=== PATIENT | female | born 1985 | race Hispanic/Latino ===

== ENCOUNTER → 2016-08-07 | Outpatient (CLI) | payer OTHER ==
[2016-08-07 11:48] LABS: HEMATOCRIT 36.7 % (37.0-47.0); HEMOGLOBIN 12.4 g/dL (12.0-16.0); RED BLOOD COUNT 4.13 10^6/uL (4.20-5.40); WHITE BLOOD COUNT 11.19 10^3/uL (4.8-10.8)
[2016-08-07 11:49] LABS: MEAN CORPUSCULAR HGB CONC 33.8 g/dL (33-37); MEAN PLATELET VOLUME 10.2 FL (7.4-12.2); RDW COEFFICIENT OF VARIATION 13.3 % (11.5-14.5)
[2016-08-07 11:57] LABS: ASPARTATE AMINO TRANSFERASE 17 IU/L (8-39); BILIRUBIN,TOTAL 0.3 mg/dL (0.3-1.2); BLOOD UREA NITROGEN 7 mg/dL (7-22); BUN/CREATININE RATIO 11.66 (6-20); CALCIUM 9.1 mg/dL (8.7-10.7); CHLORIDE 104 meq/L (98-112); CREATININE 0.6 mg/dL (0.50-1.20); EST GLOMERULAR FILTRATION > 60 (>60 ml/min/1.73m(2)); GLUCOSE 186 mg/dL (78-110); POTASSIUM 3.7 meq/L (3.8-5.2); SODIUM 137 meq/L (135-145); TOTAL PROTEIN 6.5 g/dL (6.1-8.0)
== END ==
LOC: LAB 10:18
PROVIDERS: ATTEND Obstetrics & Gynecology
DX: Z36 Encounter for antenatal screening of mother (principal); O26.893 Other specified pregnancy related conditions, third trimester; R16.0 Hepatomegaly, not elsewhere classified; Z3A.28 28 weeks gestation of pregnancy
CPT/HCPCS: 36415; 80053; 82950; 85027

== ENCOUNTER 2016-08-30 08:42 | Outpatient (CLI) | payer OTHER ==
[~2016-08-30 08:42] MED LIST: NORMAL SALINE 10 ML SYRINGE FLUSH IVP PRN
--- NOTE | 2016-08-30 12:04 | DI ---
US OB , LIMITED,08/30/2016 8:52 AM: Clinical History: Gestational diabetes mellitus Previous Exam: June 08, 2016 Findings: Multiple grayscale and color Doppler sonographic images are obtained through the uterus demonstrating a single live intrauterine gestation in vertex presentation with a normal amniotic fluid index (13.4 cm). There is normal motion and detected Doppler heart tones of 127 beats per minute. The placenta is anterior and grade 1 without gross defects. Estimated gestational age was determined by a composite of biparietal diameter, head circumference, a bdominal circumference and femur length yielding an estimated gestational age by ultrasound of 34 wee ks 3 days. This is 18 days further along than the estimated gestational age by last menstrual period (31 weeks 6 days). The femur length measures at greater than the 98th percentile. The abdominal circumference is at the 98th percentile. Estimated weight was 2455 g (98th percentile). Impression: Single live intrauterine gestation with size greater than dates (98th percentile). Estimated gestatio nal age by biometry measures 34 weeks 3 days. Estimated gestational age by last menstrual perio d measures 31 weeks 6 days. At the 14 week appointment, estimated gestational age by ultrasound is on ly 4 days greater than by last menstrual period.
--- NOTE | 2016-08-30 12:44 | DI ---
US OB BIOPHYS PROFILE W/NST,08/30/2016 10:31 AM: Clinical History: Gestational diabetes. Previous Exam: June 08, 2016 Findings: Multiple grayscale and color Doppler sonographic images are obtained through the pelvis demonstrating a normal amniotic fluid index (15.3 cm). There is normal respiratory motion identified as well as movement and tone. Detected Doppler he art tones measured 158 beats per minute. The placenta was grossly normal throughout its visualized po rtions. Impression: Normal biophysical profile (02/26).
--- NOTE | 2016-08-30 16:22 | PDOC(PROG) ---
Assessment and Plan - Assessment / Plan Additional Assessment/Plan Details: Assessment: IUP 31-6/7 weeks with gestational diabetes and patient was started on glyburide. The patient was started on antepartum testing today. The patient has a biophysical profile of 10 out of 10 with a reactive NST and an ADEEL of 15 and this is excellent. The patient's baby was very active and there were accelerations and there was one deceleration just after the acceleration and just before another acceleration. It lasted for about 40 seconds. Most likely this deceleration was secondary to the 2 accelerations but a biophysical profile was performed and it was 8 out of 8. After a while on the nonstress test, there was a great baseline identified and excellent accelerations with no decelerations. The estimated weight was the 98th percentile. The patient is a previous C -section and will have a repeat . I will have another repeat C- section in 4 weeks to look for growth. I saw the patient in labor and delivery and the patient discussed that she has been taking her glyburide 2.5 mg twice a day which is a low dose since she just started this at noon and then in the evening. She was told not to take the glyburide and then go to sleep and she was concerned because she often takes a morning nap and therefore she is not taking it until noon. The patient stated that her fasting glucoses in the morning have been about 75-90. Patient states that her 2 hour postprandials have been between 120 and 135 and occasionally up to 144. Plan: The patient will continue her antepartum testing The patient will have a growth scan in 4 weeks The patient will see me next week and we may have to increase the dose of her glyburide in the morning depending upon what her glucoses are. The patient will have a nonstress test on 03 September and then a biophysical profile on 05 September. If the nonstress test on both days looks excellent, then the patient can continue biophysical profiles once a week since the patient lives more than an hour away from [facility]. I will see the patient on Saturday afternoon after her BPP and evaluate her glucoses at that time.
[2016-08-30 18:14] VITALS: RESP 18; TEMP 98.4
== END 2016-08-30 11:19 | disposition home or self-care (01) ==
LOC: US 08:42 → OBOP 08:42
PROVIDERS: ATTEND Obstetrics & Gynecology
DX: O24.415 Gestational diabetes mellitus in pregnancy, controlled by oral hypoglycemic drugs (principal); Z3A.31 31 weeks gestation of pregnancy
CPT/HCPCS: 59025; 76815; 76818; 99211

== ENCOUNTER 2016-09-03 10:07 | Outpatient (CLI) | payer OTHER ==
[2016-09-03 11:08] VITALS: RESP 18; TEMP 98.4
--- NOTE | 2016-09-03 16:27 | PDOC(PROG) ---
Intake - - Reason for Visit/Chief Complaint: Bi-weekly NST Admitted From: Home - Estimated Due Date: 10/26/16 Gestational Age in Weeks and Days: 32 Weeks and 3 Days : 3 Para: 1 Number of Abortions (Spont./Elective): 1 Living Children: 1 - Labs Blood Type and Rh: A+ Hepatitis B Surface Antigen: Absent HIV: Negative Rubella Status: Immune VDRL/RPR: Absent Maternal - Vital Signs Last Taken Vital Signs: Vital Signs - Last Taken Temperature 98.4 F 09/03/16 11:05 Pulse Rate 82 09/03/16 11:05 Respiratory Rate 18 09/03/16 11:05 Blood Pressure 133/65 09/03/16 11:05 Pulse Ox 96 09/03/16 11:05 - Uterine Activity Uterine Contraction Monitor Mode: External Uterine Tone Measurement Phase: soft - Vaginal Discharge Vaginal Bleeding Amount: None Vaginal Discharge Amount: None Monitoring - Uterine Activity Uterine Contraction Monitor Mode: External Uterine Tone Measurement Phase: soft Assessment and Plan - Assessment / Plan Additional Assessment/Plan Details: Assessment: IUP 32-3/7 weeks with A2 diabetes mellitus which is gestational diabetes on medication. Reactive nonstress test without variable decelerations per nurse in labor and delivery The patient's 2 hour postprandial glucose in the evening has been 135. Fasting glucoses in the morning have been around 90 Plan: The patient will continue antepartum testing with a biophysical profile on Saturday. If there are no variable decelerations then we will continue BPP' s once a week. The patient will increase her dose of glyburide to 5 mg in the morning and continued 2.5 mg in the evening. The patient will see me on Saturday and bring her fingerstick glucose record with her. I will continue to adjust the patient's glyburide as needed. The patient and I discussed the reason to control her glucoses are for several reasons. One is to control the patient's glucoses and to try to control weight gain in the patient. The next is try to control the fetus' weight gain secondary to the fetus having increase insulin production if the mother's glucose is elevated. Therefore increasing the EFW. The patient's ultrasound last week showed the EFW to be the 98th percentile. And also the reason to control the mother's glucoses is to try to get the fetus' glucose more control so that when the baby is born, the baby does not have as many problems with glucose control in the first 48-72 hours. The patient expressed understanding. The patient will be a repeat since she had a historically.
== END 2016-09-03 11:08 | disposition home or self-care (01) ==
LOC: OBOP 10:07
PROVIDERS: ATTEND Obstetrics & Gynecology
DX: O24.415 Gestational diabetes mellitus in pregnancy, controlled by oral hypoglycemic drugs (principal); Z3A.32 32 weeks gestation of pregnancy
CPT/HCPCS: 59025; 99211

== ENCOUNTER 2016-09-05 10:53 | Outpatient (CLI) | payer OTHER ==
[2016-09-05 11:11] VITALS: RESP 16; TEMP 98
--- NOTE | 2016-09-05 13:01 | DI ---
US OB BIOPHYS PROFILE W/NST,09/05/2016 12:00 PM: Clinical History: Assess well-being. Previous Exam: August 30, 2016 Findings: Multiple grayscale and color Doppler sonographic images are obtained through the pelvis demonstrating a single live intrauterine gestation. Detected Doppler heart tones measured 163 beats per minute. Amniotic fluid index measured 12.8 cm. There is normal spontaneous motion. The placenta was wit hin normal limits. There were normal respiratory movement is identified. Impression: Normal biophysical profile (02/26). Normal placenta without evidence of accreta.
--- NOTE | 2016-09-10 10:09 | PDOC(PROG) ---
Intake - - Reason for Visit/Chief Complaint: Bi-weekly NST Admitted From: Home - Estimated Due Date: 10/26/16 Gestational Age in Weeks and Days: 33 Weeks and 3 Days : 3 Para: 1 Number of Abortions (Spont./Elective): 1 Living Children: 1 - Labs Blood Type and Rh: A+ Group B Strep: Unknown Hepatitis B Surface Antigen: Absent HIV: Negative Rubella Status: Immune VDRL/RPR: Absent Maternal - Vital Signs Last Taken Vital Signs: Vital Signs - Last Taken Temperature 98.0 F 09/05/16 11:10 Pulse Rate 87 09/05/16 11:10 Respiratory Rate 16 09/05/16 11:10 Blood Pressure 130/77 09/05/16 11:17 Pulse Ox 100 09/05/16 11:10 - Uterine Activity Uterine Contraction Monitor Mode: External Contraction Frequency(minutes): none noted or palpated - Vaginal Discharge Vaginal Bleeding Amount: None Vaginal Discharge Amount: None Monitoring - Uterine Activity Uterine Contraction Monitor Mode: External Contraction Frequency(minutes): none noted or palpated Assessment and Plan - Assessment / Plan Additional Assessment/Plan Details: Patient has gestational diabetes. Patient had a biophysical profile which was 10 out of 10. There were no decelerations. Patient's glucoses were evaluated at an appointment the same day. Her glyburide dose was adjusted. The patient will continue weekly biophysical profiles since she lives so far away. Her glucoses will continue to be monitored and her glyburide dose will continue to be adjusted.
== END 2016-09-05 12:29 | disposition home or self-care (01) ==
LOC: OBOP 10:53
PROVIDERS: ATTEND Obstetrics & Gynecology
DX: O24.415 Gestational diabetes mellitus in pregnancy, controlled by oral hypoglycemic drugs (principal); O99.333 Smoking (tobacco) complicating pregnancy, third trimester; F17.210 Nicotine dependence, cigarettes, uncomplicated; Z3A.32 32 weeks gestation of pregnancy
CPT/HCPCS: 59025; 76818; 99211

== ENCOUNTER 2016-09-12 09:27 | Outpatient (CLI) | payer OTHER ==
[2016-09-12 10:00] VITALS: RESP 18; TEMP 97.4
[2016-09-12 11:25] LABS: HEMATOCRIT 37.9 % (37.0-47.0); HEMOGLOBIN 12.7 g/dL (12.0-16.0); MEAN CORPUSCULAR HEMOGLOBIN 29.5 PG (27-31); MEAN CORPUSCULAR HGB CONC 33.5 g/dL (33-37); MEAN PLATELET VOLUME 9.9 FL (7.4-12.2); RDW COEFFICIENT OF VARIATION 14.4 % (11.5-14.5); RED BLOOD COUNT 4.3 10^6/uL (4.20-5.40); WHITE BLOOD COUNT 11.28 10^3/uL (4.8-10.8)
[2016-09-12 11:37] LABS: ASPARTATE AMINO TRANSFERASE 19 IU/L (8-39); BILIRUBIN,TOTAL 0.3 mg/dL (0.3-1.2); BLOOD UREA NITROGEN 6 mg/dL (7-22); CALCIUM 8.7 mg/dL (8.7-10.7); CHLORIDE 101 meq/L (98-112); CREATININE 0.5 mg/dL (0.50-1.20); EST GLOMERULAR FILTRATION > 60 (>60 ml/min/1.73m(2)); GLUCOSE 88 mg/dL (78-110); POTASSIUM 3.7 meq/L (3.8-5.2); SODIUM 133 meq/L (135-145); TOTAL PROTEIN 6.7 g/dL (6.1-8.0); URIC ACID 5.4 mg/dl (2.5-6.2)
--- NOTE | 2016-09-12 13:05 | DI ---
US OB , LIMITED,09/12/2016 10:27 AM: Clinical History: Gestational diabetes. Previous Exam: None at this facility. Findings: Multiple grayscale and color Doppler sonographic images are obtained through the pelvis demonstrating a single live intrauterine gestation in vertex presentation. There is normal motion of the limbs and the hemidiaphragms. The placenta is anterior without gross defects. Detected Doppler heart tones measure 132 beats per minute. Amniotic fluid index measured 13.8 cm. Estimated gestational age was determined by a composite of biparietal diameter, head circumference, a bdominal circumference and femur length yielding an estimated gestational age of 35 weeks 5 days. Estimated weight was 2765 g (94th percentile). Impression: Single live intrauterine gestation with size equal to dates (estimated gestational age by ultrasound measures 2 weeks larger than by last menstrual period ).
--- NOTE | 2016-09-12 16:54 | DI ---
US OB BIOPHYS PROFILE W/NST,09/12/2016 10:26 AM: Clinical History: Assess well-being. Previous Exam: September 05, 2016 Findings: Multiple grayscale and color Doppler sonographic images are obtained through the pelvis demonstrating a single live intrauterine gestation in vertex presentation. Amniotic fluid index is normal (13.8 cm). There is normal motion of the limbs and normal diaphragmatic motion. Detected Doppler heart tones measured 132 beats per minute. Impression: Normal biophysical profile (02/26).
== END 2016-09-12 12:20 | disposition home or self-care (01) ==
LOC: OBOP 09:27 → US 09:27 → OBOP 12:20
PROVIDERS: ATTEND Obstetrics & Gynecology
DX: O24.415 Gestational diabetes mellitus in pregnancy, controlled by oral hypoglycemic drugs (principal); O99.333 Smoking (tobacco) complicating pregnancy, third trimester; Z36 Encounter for antenatal screening of mother; Z3A.33 33 weeks gestation of pregnancy
CPT/HCPCS: 36415; 59025; 76815; 76818; 80053; 81003; 83615; 84550; 85025; 99211

== ENCOUNTER 2016-09-19 09:36 | Outpatient (CLI) | payer OTHER ==
[2016-09-19 09:57] VITALS: RESP 18; TEMP 97.7
--- NOTE | 2016-09-19 20:10 | DI ---
LIMITED OBSTETRICAL ULTRASOUND FOR BIOPHYSICAL PROFILE, 09/19/2016 10:24 AM Clinical History: Gestational diabetes. Assess well-being. Previous Exam: 09/12/2016. ADJUSTED LMP: 01/20/2016. ADEEL: 19.1 cm. Heart Rate: 132 Respiration Score: 2 Fine Motor Score: 2 Gross Motor Score: 2 Amnionic Fluid Score: 2 Readin. Biophysical Profile Score: 8/8 2. Qualitatively, there is mild polyhydramnios for this stage of .
--- NOTE | 2016-09-24 06:55 | PDOC(PROG) ---
Intake - - Reason for Visit/Chief Complaint: NST Admitted From: Home - Estimated Due Date: 10/26/16 Gestational Age in Weeks and Days: 35 Weeks and 3 Days : 2 Para: 1 Number of Abortions (Spont./Elective): 1 Living Children: 1 - Labs Blood Type and Rh: A+ Hepatitis B Surface Antigen: Absent HIV: Negative Rubella Status: Immune VDRL/RPR: Absent Maternal - Vital Signs Last Taken Vital Signs: Vital Signs - Last Taken Temperature 97.7 F 09/19/16 09:48 Pulse Rate 71 09/19/16 09:48 Respiratory Rate 18 09/19/16 09:48 Blood Pressure 121/77 09/19/16 09:48 Pulse Ox 100 09/19/16 09:48 - Uterine Activity Uterine Contraction Monitor Mode: External Uterine Contraction Pattern: Absent - Vaginal Discharge Vaginal Bleeding Amount: None Vaginal Discharge Amount: None Monitoring - Uterine Activity Uterine Contraction Monitor Mode: External Uterine Contraction Pattern: Absent Results - Bedside Testing Bedside Urine Ketone: Small Bedside Urine Leukocytes Esterase: Negative Bedside Urine Nitrite: Negative Bedside Urine Occult Blood: Negative Bedside Urine Protein: Negative Bedside Specific [place]: 1.005 Assessment and Plan - Assessment / Plan Additional Assessment/Plan Details: Reactive NST. Discharge to home in good condition. - Time Time Spent With Patient: Less Than 15 Minutes
== END 2016-09-19 11:00 | disposition home or self-care (01) ==
LOC: US 09:36
PROVIDERS: ATTEND Obstetrics & Gynecology
DX: O24.415 Gestational diabetes mellitus in pregnancy, controlled by oral hypoglycemic drugs (principal); O40.3XX0 Polyhydramnios, third trimester, not applicable or unspecified; Z3A.34 34 weeks gestation of pregnancy
CPT/HCPCS: 59025; 76818; 81003; 99211

== ENCOUNTER 2016-10-02 14:33 | Outpatient (CLI) | payer OTHER ==
[2016-10-02] MEDS ORDERED: NORMAL SALINE 10 ML SYRINGE FLUSH IVP PRN (14:55)
[2016-10-02 15:03] VITALS: RESP 20; TEMP 98
[2016-10-02 15:17] LABS: HEMOGLOBIN 12.6 g/dL (12.0-16.0); MEAN CORPUSCULAR HEMOGLOBIN 28.8 PG (27-31); MEAN CORPUSCULAR HGB CONC 33.2 g/dL (33-37); RED BLOOD COUNT 4.38 10^6/uL (4.20-5.40)
[2016-10-02 15:49] LABS: BLOOD UREA NITROGEN 5 mg/dL (7-22); EST GLOMERULAR FILTRATION > 60 (>60 ml/min/1.73m(2)); SERUM ALBUMIN 3.2 g/dL (3.5-4.8)
--- NOTE | 2016-10-02 20:23 | DI ---
LIMITED OBSTETRICAL ULTRASOUND FOR BIOPHYSICAL PROFILE, 10/02/2016 2:35 PM Clinical History: Gestational diabetes. Previous Exam: 09/19/2016. ADJUSTED LMP: 01/20/2016. ADEEL: 16.2 cm. Heart Rate: Varies between 149-155 beats per minute. Respiration Score: 2 Fine Motor Score: 2 Gross Motor Score: 2 Amnionic Fluid Score: 2 Readin. Biophysical Profile Score: 8/8 2. There is mild polyhydramnios for this stage of .
--- NOTE | 2016-10-09 09:49 | PDOC(PROG) ---
Intake - - Reason for Visit/Chief Complaint: NST - Para: 1 Number of Abortions (Spont./Elective): 1 Living Children: 1 - Labs Blood Type and Rh: A+ Maternal - Vital Signs Last Taken Vital Signs: Vital Signs - Last Taken Temperature 98.0 F 10/02/16 14:05 Pulse Rate 72 10/02/16 14:05 Respiratory Rate 20 10/02/16 14:05 Blood Pressure 116/72 10/02/16 14:33 Pulse Ox 100 10/02/16 14:05 Results - Labs CBC and BMP: 10/02/16 14:57 10/02/16 14:57 - Bedside Testing Bedside Urine Ketone: Negative Bedside Urine Leukocytes Esterase: Negative Bedside Urine Nitrite: Negative Bedside Urine Occult Blood: Negative Bedside Urine Protein: Negative Bedside Specific [place]: 1.005 Assessment and Plan - Assessment / Plan Additional Assessment/Plan Details: Reassuring maternal and evaluation. Discharge to home in good condition. - Time Time Spent With Patient: Less Than 15 Minutes
== END 2016-10-02 16:00 | disposition home or self-care (01) ==
LOC: OBOP 14:33 → US 14:33 → OBOP 16:00
PROVIDERS: ATTEND Obstetrics & Gynecology
DX: O24.415 Gestational diabetes mellitus in pregnancy, controlled by oral hypoglycemic drugs (principal); O40.3XX0 Polyhydramnios, third trimester, not applicable or unspecified; O99.333 Smoking (tobacco) complicating pregnancy, third trimester; Z3A.36 36 weeks gestation of pregnancy
CPT/HCPCS: 59025; 76818; 80053; 81003; 85027; 99211

== ENCOUNTER 2016-10-09 16:28 | Inpatient (IN) | payer OTHER ==
[2016-10-09] MEDS ORDERED: Lactated Ringers 1,000 ML PRIMARY IV ONE ×3 (18:08→22:28)
[2016-10-09] MEDS ORDERED: LIDOCAINE W/ SODIUM BICARB 0.5 ML SYR SUBD ONE (18:09)
--- NOTE | 2016-10-09 19:59 | DI ---
US OB , LIMITED,10/09/2016 4:34 PM: Clinical History: Gestational diabetes. Previous Exam: None at this facility. Findings: Multiple grayscale and color Doppler sonographic images are obtained through the pelvis, and demonstr ate normal motion of the diaphragms. There is spontaneous motion and normal Doppler tone. Amniotic fluid index measures 17.3 cm. Detected Doppler heart tones measure 160 beats per minute. The cervix is long and closed measuring 3.4 cm in length. Impression: Normal biophysical profile (02/26)
--- NOTE | 2016-10-09 20:04 | DI ---
US OB BIOPHYS PROFILE W/NST,10/09/2016 4:39 PM: Clinical History: Gestational diabetes. Previous Exam: None at this facility. Findings: Multiple grayscale and color Doppler sonographic images are obtained through the pelvis, and demonstr ate a single live intrauterine gestation in vertex presentation. The placenta is anterior and grade 0 without defects. The cervix is long and closed, and measures 3.8 cm in length. Detected Doppler heart tones measure 149 beats per minute. Amniotic fluid index is normal measuring 18.4 cm. Estimated gestational age was determined by a composite of biparietal diameter, head circumference, a bdominal circumference and femur length yielding an estimated gestational age by ultrasound of 30 wee ks 5 days. anatomy is within normal limits. Estimated weight is 3537 g (84 percentile) Impression: Single live intrauterine gestation with size equal to dates.
[2016-10-09] MEDS ORDERED: Famotidine Inj 20 MG in Normal Saline Flush 10 ML IVP ONE (20:45)
[2016-10-09] MEDS ORDERED: Lactated Ringers 1,000 ML PRIMARY IV SCH (20:45)
[2016-10-09] MEDS ORDERED: NORMAL SALINE 10 ML SYRINGE FLUSH IVP PRN ×2 (20:45→23:22)
[2016-10-09] MEDS ORDERED: Metoclopramide Inj 10 MG/2 ML VIAL IV ONE (20:45)
[2016-10-09] MEDS ORDERED: LIDOCAINE W/ SODIUM BICARB 0.5 ML SYR SUBD PRN (20:45)
[2016-10-09] MEDS ORDERED: Oxytocin 20 Units + LR 1,000 ML IV SCH (20:45)
[2016-10-09] MEDS ORDERED: CITRIC ACID/SODIUM CITRATE 30 ML CUP PO ONE (20:45)
[2016-10-09] MEDS ORDERED: CefOXitin Inj 2 GM in Sodium Chloride 0.9% 100 ML IV ONE (20:45)
[2016-10-09] MEDS ORDERED: MORPHINE SULFATE/PF 10 MG/10 ML AMPULE ONE (21:07)
[2016-10-09] MEDS ORDERED: OXYTOCIN 10 UNIT/1 ML ONE ×3 (21:19→22:51)
[2016-10-09] MEDS ORDERED: ePHEDrine Inj 50 MG/ML AMP ONE (21:20)
[2016-10-09 21:27] LABS: HEMOGLOBIN 12.8 g/dL (12.0-16.0); MEAN CORPUSCULAR HGB CONC 33.7 g/dL (33-37); MEAN PLATELET VOLUME 10.2 FL (7.4-12.2); RED BLOOD COUNT 4.42 10^6/uL (4.20-5.40)
--- NOTE | 2016-10-09 21:30 | OB.PROGRES ---
Interval History: The patient is a 31-year-old white female 011 at 37-4/7 weeks' gestation with gestational diabetes taking glyburide and her glucoses are more controlled this week with her fasting glucoses around 90 but her 2 hour postprandials have been between 130 and 145. This was taking 10 mg in the morning and 7-1/2 mg in the evening. I saw the patient in clinic this afternoon with these glucoses after she adjusted her diet from last week when her 2 hour postprandial glucoses were in the low 200s sometimes. The patient saw the dietitian and I increased her glyburide last week. The patient was sent to labor and delivery when heart tones were noted to be between 170 and 186 and was thought to be an acceleration but we wanted to check and after the biophysical profile was completed since the patient is receiving antepartum testing for gestational diabetes and lives more than an hour away, biophysical profiles have been being completed once a week. The biophysical profile was 8 out of 8. Estimated weight was around 7 lbs. 13 oz. according to the patient. ADEEL was around 17-18 cm. The nonstress test was then done and was reactive but the patient was noted to be vik about every 3-5 minutes. After an IV fluid bolus of 1 L over 2 hours the patient's contractions were every 3-6 minutes but the patient was now feeling these contractions. With the patient having a history of a section, a was then discussed with the patient and the operating room crew was called in for the repeat this evening. Consent forms were signed earlier for a repeat and the patient also has satisfied parity and wants a tubal ligation. Tonight in labor and delivery the patient recalls signing the consent forms earlier today and she still wants a tubal ligation. During the , the patient noticed a bulge in her right upper quadrant and an ultrasound was done and mild hepatomegaly was diagnosed. A repeat ultrasound would be done after delivery. CMP's were completed and these were normal. The group B strep was just completed this afternoon but the results are not resulted yet. The patient is also allergic to penicillin. 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 History of beginning of 30 yo WF lmp 20 Jan 2016 who was using nothing for contraception who had a positive hCG last week and presents today for amenorrhea. The patient has a several year history of low back pain and herniated disc at L5-S1 and was on Percocet for this chronic pain. Additionally, the patient has anxiety and was on Xanax. She also took Ambien for sleep issues and a proton pump inhibitor. The patient stopped these medications last week when she found out she had a positive test. The patient has lost 5 pounds in the last week or 2 secondary to nausea and emesis and not feeling like eating. The patient states that she has emesis 1 every morning and sometimes other times. No vaginal bleeding. No pain. Past medical history significant for herniated disc at L5-S1, anxiety, GERD, and sleep disorder. Past surgical history significant for a and tonsil and adenoid Allergies to penicillin and Naprosyn Tobacco the patient quit 1 month ago Alcohol none drugs none OB history arrest of dilation at 7 cm and had a section without complications 12 years ago. [employer] history with menarche age 11 and regular cycles. Now her cycles are every 28 days. Last Pap was a year ago. No history of abnormal Paps. Objective - Cervical Exam Terry: Contractions every 3-6 minutes Heart Rate Interpretation Category: Category I - Vital Signs Last Taken Vital Signs: Vital Signs - Last Taken Temperature 98.2 F 10/09/16 17:36 Pulse Rate 58 L 10/09/16 17:36 Respiratory Rate 18 10/09/16 17:36 Blood Pressure 119/61 10/09/16 17:36 Pulse Ox 98 10/09/16 17:36 Assessment and Plan - Assessment / Plan Additional Assessment/Plan Details: Assessment: IUP 37-4/7 weeks Previous section with contractions every 3-6 minutes with the patient feeling these contractions even after a fluid bolus. Group B strep status unknown Gestational diabetes taking glyburide with glucose is not controlled completely. Glucoses this week or much improved from last week when the 2 hour postprandials were around 200. For the last week, the patient is taking 10 mg of glyburide in the morning and 7-1/2 mg in the evening and her fasting glucoses in the morning were right around 90 and her 2 hour postprandials have been 130 to 145. Mild hepatomegaly with CMP is normal The patient has an anterior placenta and no evidence of placenta accreta by ultrasound EFW was 7 lbs. 13 oz. by ultrasound today per patient Plan: The risks, benefits, alternatives and indication of a repeat section were discussed with the patient. The risks were discussed but not limited to infection, bleeding, hemorrhage, blood transfusion with associated risks, risk of hysterectomy, damage to bowel, bladder, nerve, vessel, nicking the baby, damage to ureter, blood clots to the legs or lungs, serious infection perhaps needing trans-port to a tertiary care hospital and requiring more surgeries, allergic reaction to anesthesia medications, and the low risk of were discussed with the patient. Patient expressed understanding. Consent form was signed earlier today. Also, the patient has satisfied parity. She does not want anymore children. We discussed all different types of tubal ligations and taking all different types, there is a failure rate of 1-2% over 10 years. There is a risk for bleeding with the tubal ligation. Patient expressed understanding. Patient would like a tubal ligation. The operating room crew and anesthesia and the physician caring for the baby were called and are preparing for surgery currently.
[2016-10-09] MEDS ORDERED: Clindamycin 900mg (Premix) 50 ML IV ONE (21:34)
[2016-10-09] MEDS ORDERED: Clindamycin 900mg (Premix) 900 MG in Dextrose 1 BAG IV ONE (21:35)
[2016-10-09 21:38] LABS: BLOOD UREA NITROGEN 6 mg/dL (7-22); CALCIUM 8.9 mg/dL (8.7-10.7); EST GLOMERULAR FILTRATION > 60 (>60 ml/min/1.73m(2)); SERUM ALBUMIN 3.3 g/dL (3.5-4.8)
[2016-10-09] MEDS ORDERED: AZITHROMYCIN 500 MG VIAL IV ONE (21:43)
[2016-10-09] MEDS ORDERED: Sodium Chloride 0.9% 100 ML IV ONE (21:45)
[2016-10-09] MEDS ORDERED: KETOROLAC 30 MG/1 ML VIAL ONE (22:19)
[2016-10-09] MEDS ORDERED: ONDANSETRON 4 MG/2 ML VIAL ONE (22:21)
[2016-10-09] MEDS ORDERED: HYDROmorphone 2 MG/1 ML IVP PRN (23:22)
[2016-10-09] MEDS ORDERED: Nalbuphine Inj 20 MG/ML Ampule IVP PRN (23:22)
[2016-10-09] MEDS ORDERED: Prochlorperazine Edisylate Inj 10mg/2ml vial IVP PRN (23:22)
--- NOTE | 2016-10-09 23:22 | CRNA.PROCE ---
Central Neuraxis Block Placemt - - Safety Measures: Time Out Taken, Site Verified - - Type of Block: Subarachnoid Reason for Block: Surgical Moniters Used During Block: EKG, SPO2, NIBP Skin Prep Used: ChloroPrep Spinal Needle Used: 25 Musa 80 mm Local Anesthetic - Enter Amount Used in Comment Field: 0.75 % Bupivacaine with Dextrose (ml): Yes (2ml) Additive Used - Enter Amount Used in Comment Field: Preservative Free Morphine ( mg): Yes (150mcg) Bioclusive Dressing Applied: No
--- NOTE | 2016-10-09 23:32 | OB.OP.NOTE ---
Operative Report Surgeon: [employer] Librarian: Fabian Almazan MD Anesthesia Type: Regional (With Duramorph) Anesthesia Provider: Colt Stewart CRNA Surgery Date: 10/09/16 Preoperative Diagnosis: IUP 37-4/7 weeks, previous section who desires repeat section, latent labor, satisfied parity who desires bilateral tubal ligation, gestational diabetes on medication, mild hepatomegaly, allergic to penicillin-anaphylactic reaction Postoperative Diagnosis: Same. Omentum-peritoneum adhesions Procedure: Repeat low transverse section. Bilateral tubal ligation using Filshie clips. Lysis of adhesion of omentum to peritoneum Estimated Blood Loss (mL): 1,100 Fluids: 2100 mL LR. Clear urine 75 mL. Clindamycin 900 mg IV before surgery. Azithromycin 500 mg IV after cord clamp Complications: None apparent Findings at Surgery: Female infant with Apgars 7 and 8 Weight was 8 pounds 1.7 ounces ABG showed a pH is 7.263, PCO2 of 43.1, HCO3 of 19.5, base excess -8 Normal appearing uterus Normal right and left ovary Normal fallopian tubes bilaterally Indications for the Procedure: Patient is a 31-year-old status post primary several years ago who currently was 37-4/7 weeks gestation with latent labor with contractions 3- 6 minutes which the patient was palpating. Cervix was checked earlier today in clinic and was closed and prior to surgery the patient's cervix was 1 cm dilated. Membranes were intact. GBS status is still pending because GBS culture was done today in clinic. The results will be completed early tomorrow afternoon. Patient is allergic to penicillin-anaphylactic reaction. The patient had been counseled on a repeat and consent forms have been signed after the risks, benefits, alternatives and indications were discussed with the patient. This was done in clinic earlier today and we discussed it again this evening when the patient was found to be vik after the patient had a nonstress test secondary to the heart rate in the clinic being 170 to 186 and the patient was found to be vik on the nonstress test and then started to feel her contractions after a couple hours even though the patient received IV LR 1000 mL over 2 hours. Secondary to the patient continuing to contract, a repeat section and tubal ligation was offered to the patient and the patient agreed. Patient received clindamycin 900 mg IV prior to surgery and then azithromycin 500 mg IV after cord clamp. Description of Procedure: The patient was brought to the operating room. The patient underwent spinal anesthesia without complication. Spinal with Duramorph. The patient then had a Tellez catheter placed sterilely. The patient was then prepped and draped sterilely with a leftward tilt. Timeout was completed and the patient and procedures were identified. The patient was tested and the patient's anesthesia was found to be adequate. A Pfannenstiel skin incision was made over her old minimal scar. I then worked my way down to the fascia using the Bovie. The fascia was nicked in the midline bilaterally and then extended using the [employer] suction as a retractor underneath the fascia and using the Bovie to incise the fascia. This was done bilaterally. [place] clamps were then placed on the superior fascia on either side of the midline and the rectus muscle was dissected off of the fascia both bluntly and using the Bovie. The same was done inferiorly. I then used Angela clamps to separate the scarred peritoneum and then the peritoneum was entered bluntly and then stretched. It was noted that some of the omentum was adhesed to the inferior aspect of the peritoneum. The Mars retractor was placed in the usual fashion. The lower uterine segment of the uterus was identified and the bladder reflection was identified. I then made a low transverse uterine incision in an arc above the bladder reflection. My incision went through the uterus to the membranes. As I was incising with a knife, the baby's head was moving against the anterior uterus. As I got down to the membranes, I used an Allis clamp to grasp the lower uterine segment to elevated and then was able to incise using the knife blade through the membranes and there was clear fluid. I then used bandage scissors on the left and right superior aspect of the incision to extend up the incision superiorly on the patient's left side than right side. I then stretched the uterine incision again and then placed my hand intrauterine along the baby's head and delivered the baby's head through the uterine incision. I then used a bulb suction to suction the baby's mouth and nares. The anterior posterior shoulders were then delivered and the baby was delivered using fundal pressure. The cord was then clamped and cut. The baby was handed off to the waiting nurse sterilely. The nurse brought the baby over to the warmer for the physician and nurses to care for the baby. A section of cord was obtained for cord gases and cord blood was obtained and then the placenta was delivered by applying traction to the cord and fundal massage. The placenta delivered and then trailing membranes were teased out and all membranes were removed from the uterus. The uterus was then cleared of any clot and debris using a lap sponge 2. The uterine incision was then closed using 0 Vicryl suture in a running locking fashion starting on the patient's left side and closing the left angle of the uterine incision and then working my way over towards the patient's right side. The right angle suture was applied and then tied. There was actually very good hemostasis of the entire incision. A moist lap sponge was placed over the uterine incision and then the uterus was anteflexed and then posterior to the uterus was irrigated. The fallopian tubes and ovaries were then examined and the right and left fallopian tube and ovary appeared normal. A Filshie clip was then placed on the patient's left fallopian tube. There was a small rent in the mesial salpinx when the Filshie clip was applied. There was good hemostasis but I did use a plain O suture and tied off the fallopian tube proximally to the uterus to ensure hemostasis and then the Bovie was applied to the mesial salpinx. There was excellent hemostasis. A Filshie clip was then placed on the patient's right fallopian tube. There was good hemostasis. I then examined the uterine incision again and there was good hemostasis. There was one area where the serosa of the uterus was minimally bleeding and this was bovied and there was good hemostasis. The uterus was then placed back into the abdomen. The patient's right gutter was then irrigated and suctioned. The patient's left gutter was then irrigated and suctioned. The uterine incision was examined again and there was good hemostasis. Attention was then turned to the patient's peritoneum and the peritoneum edges were then grasped on the right side left side and inferiorly. There was significant adhesions between the omentum and the peritoneum and one area was bovied and there was good hemostasis. There was some bleeding on the patient's left side along the peritoneum where the omentum was adhesed on the inferior aspect of the peritoneum. A large vein was also noted. Initially, a [id number]-eg-[id number] suture was applied to allow for hemostasis. Initial hemostasis occurred but then it bled again. 2 more figure- of-eight sutures were applied and there appeared to be good hemostasis. The peritoneum was then closed starting superiorly and closing the peritoneum ensuring that I just grabbed the edge of the peritoneum. However, when I closed the peritoneum near where the omentum and peritoneum were adhesed on the patient's left side, there was bleeding again. I then sutured around the figure -of-eight sutures that I had applied previously and there appeared to be hemostasis and I continued to close the peritoneum. After the peritoneum was closed, I examined the area that had been bleeding before and there appeared to be a small amount of bleeding. A lap sponge was used to dry this area and there appeared to be a little bit more bleeding but then hemostasis occurred with blotting with a lap sponge. However, I was not comfortable not knowing if there was any bleeding inferior to the peritoneum so I opened up the peritoneum that I had just closed. The larger vein along the omentum that was adhesed to the peritoneum was located more superiorly and then with a [id number] suture of Vicryl suture , this vein was tied off and there was excellent hemostasis. At this time, I decided not to close the peritoneum. I examined the area where the bleeder had just been tied off after about 2 minutes and there was good hemostasis. The fascia was then closed with 0 PDS suture that was looped. I started on the patient's left side of the fascia ensuring that I obtained both layers of fascia in my angle suture and then placed the needle through the loop and then secured the left angle of the fascia and then in the usual fashion closed the 2 layers of fascia in a running fashion without locking any of these sutures. There was good hemostasis. At the right angle of the fascia, the PDS suture was then tied about 8 times. The subcutaneous tissue was then irrigated and suctioned and a few small areas were bovied but there was very good hemostasis even before doing this. The subcutaneous tissue was then closed with 3-0 Vicryl suture in a running fashion starting the patient's left side and working to the right side. There was good hemostasis. The skin was then closed using Insorb absorbable maggi. Skin prep was then placed on either side of the skin incision and then half-inch Steri-Strips were applied across the incision. There was good hemostasis Sponge lap and needle counts were correct 2. The radiofrequency wand was used and there was no indication that any radiofrequency marked sponges were left in place. Silverlon dressing was applied and then an ABD pad and then paper tape. The drape was removed and the patient was placed in the frog leg position and the uterus was expressed of any clot and debris and there was minimal old blood from the patient's vagina and minimal clot obtained. There was good hemostasis. The patient was then brought to the PACU in stable condition. The patient received clindamycin 900 mg IV prior to the surgery and then azithromycin 500 mg IV after cord clamp. The patient also received Pitocin intravenously after delivery of the placenta. Plan: The patient patient and her baby will recover in a room. Currently, the baby is in the nursery receiving CPAP and also on IV glucose secondary to the baby's glucoses initially at 60, then 40, then a repeat was 26.
[2016-10-10] MEDS ORDERED: LANOLIN HPA 40 GM TUBE TOPICAL PRN (01:51)
[2016-10-10] MEDS ORDERED: diphenhydrAMINE 50 MG/1 ML VIAL IV PRN (01:51)
[2016-10-10] MEDS ORDERED: ONDANSETRON 4 MG/2 ML VIAL IVP PRN (01:51)
[2016-10-10] MEDS ORDERED: OXYTOCIN 10 UNIT/1 ML IM ONE (01:51)
[2016-10-10] MEDS ORDERED: Oxytocin 20 Units + LR 1,000 ML IV SCH (01:51)
[2016-10-10] MEDS ORDERED: METHYLERGONOVINE MALEATE 0.2 MG/1 ML VIAL IM PRN (01:51)
[2016-10-10] MEDS ORDERED: DIPH,PERTUSS,TET(ADACEL) VAC/PF 0.5 ML (Tdap) IM SCH (01:51)
[2016-10-10] MEDS ORDERED: MISOPROSTOL 200 MCG TABLET RECTAL ONE (01:51)
[2016-10-10] MEDS ORDERED: Famotidine Inj 20 MG in Normal Saline Flush 10 ML IVP PRN (01:51)
[2016-10-10] MEDS ORDERED: diphenhydrAMINE 25 MG CAPSULE PO PRN (01:51)
[2016-10-10] MEDS ORDERED: Methylergonovine Tab 0.2 MG TAB PO PRN (01:51)
[2016-10-10] MEDS ORDERED: Carboprost Inj 250 MCG/ML AMP IM PRN (01:51)
[2016-10-10] MEDS ORDERED: Naloxone Inj 0.01 MG, Sodium Chloride 0.9% vial 1 ML IVP PRN ×2 (01:51)
[2016-10-10] MEDS ORDERED: Nalbuphine Inj 20 MG/ML Ampule IVP PRN (01:51)
[2016-10-10] MEDS ORDERED: CALCIUM CARBONATE 500 MG (TUMS) CHEWABLE TABLET PO PRN (01:51)
[2016-10-10] MEDS: oxyCODONE-ACETAMINOPHEN 5-325 TAB PO PRN ×6 (02:34→23:30)
[2016-10-10] MEDS: D5-LR 1,000 ML PRIMARY IV SCH ×2 (02:42→18:43)
[2016-10-10] MEDS: NORMAL SALINE 10 ML SYRINGE FLUSH IVP PRN ×4 (05:31→23:03)
[2016-10-10] MEDS: KETOROLAC 30 MG/1 ML VIAL IVP PRN ×4 (05:31→23:02)
--- NOTE | 2016-10-10 08:57 | CRNA.PROGR ---
Anesthesia Note Anesthesia Progress Note: Anesthesia Post OP Note Pt is sitting up in bed, with . States that the SAB has worn off completely and she has been up to ambulate. She is tolerating a regular diet but also states she does not have much of an appetite at this time. Her pain is well under control. She denies any pruritis from the duramorph or any other residual problems of the anesthetic. Current VS are stable. Vital Signs (Last 8 hours) Temp Pulse Pulse Resp BP BP Pulse Ox 10/10/16 07:27 97.7 F 75 18 121/60 99 10/10/16 05:30 100 10/10/16 05:20 97.9 F 76 18 117/67 96 10/10/16 02:00 97.6 F 63 18 128/60 100 10/10/16 01:30 81 18 94/49 100 10/10/16 01:00 63 18 102/61 100
[2016-10-10] MEDS: Prenatal Multivitamin Tab 1 TAB TAB PO SCH (09:04)
[2016-10-10] MEDS: DOCUSATE 100 MG CAPSULE PO SCH ×2 (09:04→23:02)
--- NOTE | 2016-10-10 10:30 | OB.PROGRES ---
Subjective Post Op Day: 1 Pain Management: PO (And residual of spinal with Duramorph) Tellez Catheter: No Flatus: Yes Diet: Regular Feeding Method: Formula Feeding Ambulating: Yes Concerns / Additional Information: The patient just started ambulating this morning. Her Tellez catheter was removed. The patient now is passing flatus some. Objective - General General Appearance: POSITIVE: No Acute Distress, Cooperative - Cardiovacular Cardiovascular Exam: POSITIVE: RRR Edema: +1 Pedal Edema Extremities: Negative Prasad's - Bilaterally - Respiratory Respiratory Exam: POSITIVE: Clear to Auscultation - Bilaterally - Abdomen Bowel Sounds: Present Abdominal Wound Assessment: Silverlone Dressing, Well Approximated, Asymptomatic Other Abdominal Exam Details: Soft, no guarding or rebound. Appropriately tender status post Assesstment / Plan Assessment / Plan: Assessment: Postoperative day #1 status post repeat and bilateral tubal ligation using Filshie clips. Patient's vital signs are normal. CBC at 1500 hrs. today since surgery was last evening. Gestational diabetes on medication during her in the third trimester. Two-hour postprandial glucose morning was 107 after drinking some juice. Mild hepatomegaly by ultrasound. We'll repeat after 6 week . Plan: CBC this afternoon at 1500 hrs. Ambulate 4 times today at least Good support bra since patient is bottle feeding/formula feeding SCDs while in bed The patient did not sleep well last night. Patient needs to rest today-sleep The patient and her baby are in her room now. The baby was brought in the room early this morning after the CPAP was discontinued Continue to observe closely Fasting glucose and morning, 2 hour postprandial glucoses. Patient will need 75 Glucola after 6 week visit and then yearly. Patient understands there is an increased risk for type II diabetes with gestational diabetes
[2016-10-10 15:03] LABS: HEMATOCRIT 32.4 % (37.0-47.0); HEMOGLOBIN 10.7 g/dL (12.0-16.0); MEAN CORPUSCULAR HEMOGLOBIN 28.8 PG (27-31); MEAN CORPUSCULAR VOLUME 87.1 FL (81-99); RED BLOOD COUNT 3.72 10^6/uL (4.20-5.40)
[2016-10-11] MEDS: D5-LR 1,000 ML PRIMARY IV SCH (03:24)
[2016-10-11] MEDS: oxyCODONE-ACETAMINOPHEN 5-325 TAB PO PRN ×5 (03:31→21:14)
[2016-10-11] MEDS: IBUPROFEN 800 MG TABLET PO PRN ×3 (05:04→21:15)
[2016-10-11] MEDS: DOCUSATE 100 MG CAPSULE PO SCH ×3 (07:28→21:16)
[2016-10-11] MEDS: Prenatal Multivitamin Tab 1 TAB TAB PO SCH ×2 (07:29→09:21)
--- NOTE | 2016-10-11 14:03 | OB.PROGRES ---
Subjective Post Op Day: 2 Pain Management: PO (Oxycodone/Tylenol Ibuprofen) Tellez Catheter: No Flatus: Yes Diet: Regular Feeding Method: Formula Feeding Ambulating: Yes Concerns / Additional Information: The patient states she has been ambulating in the room. She has not been ambulating in the rene. Objective - General General Appearance: POSITIVE: No Acute Distress, Cooperative - Cardiovacular Cardiovascular Exam: POSITIVE: RRR Edema: +1 Pedal Edema Extremities: Negative Prasad's - Bilaterally - Respiratory Respiratory Exam: POSITIVE: Clear to Auscultation - Bilaterally - Abdomen Bowel Sounds: Present (Abdomen was soft without guarding or rebound Appropriately tender) Abdominal Wound Assessment: Silverlone Dressing, Well Approximated, Asymptomatic Assesstment / Plan Assessment / Plan: Assessment: Postoperative day #2 status post repeat low transverse section and bilateral tubal ligation using Filshie clips. Postop H&H was 10.7 and 32.4 The patient is doing well. No evidence of infection with fever or increased pulse rate. Blood pressure good. Last night the patient took a shower and her dressing was removed and a Silverlon dressing was replaced. The nurse stated the incision looked good. Plan: The patient should ambulate in the hallway at least 4 times per day Consider discharging patient tomorrow to home Continue to observe closely
[2016-10-12] MEDS: oxyCODONE-ACETAMINOPHEN 5-325 TAB PO PRN ×4 (01:34→13:25)
[2016-10-12] MEDS: IBUPROFEN 800 MG TABLET PO PRN ×2 (05:30→13:26)
[2016-10-12] MEDS: DOCUSATE 100 MG CAPSULE PO SCH (09:08)
[2016-10-12] MEDS: Prenatal Multivitamin Tab 1 TAB TAB PO SCH (09:08)
--- NOTE | 2016-10-12 11:46 | OB.PROGRES ---
Subjective Post Op Day: 2 Pain Management: PO Tellez Catheter: No Flatus: Yes Diet: Regular Feeding Method: Formula Feeding Ambulating: Yes Concerns / Additional Information: The patient has been exhausted and has not been able to sleep well. Her baby starts to cry in the middle of the night and she did not want the nurses taking care of her baby so she would get up and care for the baby. She has not slept very much. This morning she did get a couple hours of sleep. The patient has been intermittently tearful and the patient believes this is the reason that her pulse has been up. The patient does not feel ill and does not feel warm. No sweats. The patient has a history of anxiety and has been on Xanax but has never been on an antidepressant. The patient is open to being prescribed an antidepressant. The patient also states that since earlier this morning the patient has been noticing that occasionally she has been gasping for air. Her respiration rate has not been increased. Also she has notice some increased swelling in her right leg compared to the left but both are swollen. Objective - General General Appearance: POSITIVE: No Acute Distress (Patient does not feel warm to palpation. Patient is not clammy or sweating. Patient is not diaphoretic. With the patient laying in bed, her pulse rate decreased and was stable at 76 but when I sat her up at went up to 86-90.), Cooperative - Cardiovacular Cardiovascular Exam: POSITIVE: RRR Edema: +1 Pedal Edema Extremities: Negative Prasad's - Bilaterally - Respiratory Respiratory Exam: POSITIVE: Clear to Auscultation - Bilaterally, Breathing Non Labored - Abdomen Bowel Sounds: Present (All 4 quadrants) Abdominal Wound Assessment: Silverlone Dressing, Well Approximated Other Abdominal Exam Details: Abdomen without guarding or rebound. Appropriately tender Assesstment / Plan Assessment / Plan: Assessment: Postoperative day #2 status post repeat low transverse section and bilateral tubal ligation. The patient has been afebrile that the patient's pulse has been up to 98. The patient states that she has been upset during those times that her vitals are been taken because she is not getting sleep. The patient does not appear toxic or ill. The patient's abdomen is not warm to palpation. There is no evidence that the patient has an acute bleed but the patient's pulse has been slightly elevated and from lying to sitting her pulse goes from 76 up to 88-90. The patient thinks that she has had some gasping for breath's and she had this similarly in the third trimester of . No increased respiration rate by vitals or by my exam right now. Lungs are clear to auscultation. The patient does have edema in her lower extremities and perhaps her right lower extremity is slightly more edematous than her left but not significantly. Plan: Continue to observe patient I will check a CBC and CMP to check her H&H and also white count as well as her renal and liver function tests. The patient does have a history of mild hepatomegaly by ultrasound. I would like to get an ultrasound Doppler of her lower extremities bilaterally. If this is normal, I will consider checking a CT of her chest that I have not decided that yet. Her pulse ox is 99 percentile. We will continue to follow her pulse. When the patient is laying in bed and called her pulse was 76. Her blood pressures have been normal.
[2016-10-12 11:53] LABS: BASOPHILS # (AUTO) 0.03 10*3/UL; BASOPHILS % (AUTO) 0.4 % (0-1); EOSINOPHILS # (AUTO) 0.26 10*3/UL; EOSINOPHILS % (AUTO) 3.6 % (0-8); HEMATOCRIT 31.8 % (37.0-47.0); HEMOGLOBIN 10.5 g/dL (12.0-16.0); LYMPHOCYTES # (AUTO) 2.19 10*3/uL; MEAN CORPUSCULAR HEMOGLOBIN 29.2 PG (27-31); MEAN CORPUSCULAR VOLUME 88.3 FL (81-99); MEAN PLATELET VOLUME 9.9 FL (7.4-12.2); MONOCYTES # (AUTO) 0.79 10*3/UL (0.3-0.8); MONOCYTES % (AUTO) 10.9 % (5-15); NEUTROPHILS % (AUTO) 54.9 % (50-80); PLATELET MORPHOLOGY COMMENT NORMAL MORPHOLOGY (NORM); RBC MORPHOLOGY COMMENT NORMAL MORPHOLOGY (NORM); WBC MORPHOLOGY COMMENT NORMAL MORPHOLOGY (NORM)
[2016-10-12] MEDS ORDERED: PARoxetine Tab 20 MG TAB PO SCH ×2 (12:00→13:22)
[2016-10-12 12:03] LABS: BLOOD UREA NITROGEN 11 mg/dL (7-22); BUN/CREATININE RATIO 13.75 (6-20); EST GLOMERULAR FILTRATION > 60 (>60 ml/min/1.73m(2)); SERUM ALBUMIN 2.8 g/dL (3.5-4.8)
[2016-10-12 13:14] VITALS: RESP 16; TEMP 97.5
[2016-10-12] MEDS ORDERED: ALPRAZolam Tab 1 MG TABLET PO ONE (13:35)
--- NOTE | 2016-10-12 13:40 | OB.PROGRES ---
Assesstment / Plan Assessment / Plan: Patient's white count was not elevated and her H&H was stable compared to 2 days ago. The patient's last pulse check was 70. Afebrile. Bilateral Doppler of lower extremities was negative. I spoke with our hospitalist here about a CT of her chest to rule out a PE. Secondary to the slight shortness of breath and occasional gasping for air which is common in the third trimester but now that she is postop, both the hospitalist and I thought it prudent to check a CT with contrast of her chest to rule out a PE. Patient's pulse ox is 99 percentile. I spoke with the patient and she does have anxiety history. I will prescribed 0.5 mg by mouth of Xanax prior to the surgery. Patient agreed. If CT of her chest is negative, we will then consider discharge home.
--- NOTE | 2016-10-12 14:55 | DI ---
HISTORY: Patient had a 10/09/2016. Shortness of breath. Negative bilateral Doppler exam. TECHNIQUE: Contiguous axial images of the chest were obtained and submitted for interpretation. FINDINGS: Multiple CT images through the chest demonstrate normal pulmonary arteries. There is no f illing defect nor truncation to suggest pulmonary embolism. The thyroid is unremarkable. Mild subsegmental atelectasis is noted. IMPRESSION: 1. No pulmonary embolism.
--- NOTE | 2016-10-12 15:08 | OB.PROGRES ---
Subjective Post Op Day: 2 Pain Management: PO Tellez Catheter: No Flatus: Yes Diet: Regular Feeding Method: Formula Feeding Ambulating: Yes Concerns / Additional Information: The patient states that she is ready to go home. She does not want to stay another night. When I offered her to stay another night, the patient stated that she wanted to go home and sleep in her own bed. The patient tolerated the CT of her chest. She stated the Xanax helped. Objective - General General Appearance: POSITIVE: No Acute Distress, Cooperative - Abdomen Abdominal Wound Assessment: Silverlone Dressing (The dressing was changed. Steri-Strips were removed since some of them were moist and new Steri-Strips were applied.), Well Approximated Assesstment / Plan Assessment / Plan: Assessment: Postoperative day #2 status post repeat section and tubal ligation. Doppler of lower extremities bilaterally was negative for DVT. CT angiogram of her chest was negative for pulmonary embolus. White count was normal at 7+. H&H of 10 and 31 Pulse has been in the 70s. I started the patient on Paxil the patient will continue this. Plan: I offered for the patient to stay until tomorrow morning but the patient would like to leave. Patient was discharged home.
--- NOTE | 2016-10-12 15:13 | DCSUMMARY ---
Hospitalization Summary Admit Date: 10/09/16 Discharge Date: 10/12/16 Primary Diagnosis:: IUP 37-4/7 weeks, latent labor, previous sectio Secondary Diagnosis:: At a site parity desires tubal ligation, gestational diabetes taking glyburide Primary Surgery and Date: September,. Primary low transverse section and bilateral tubal ligation using Filshie clips Delivery Type: Hospital Course: The patient was admitted on 10/09/2016. Patient underwent repeat section and bilateral tubal ligation. Patient recovered uneventfully. On postoperative day #3 the patient had slight shortness of breath or air hunger. She had some edema in her lower extremities perhaps right greater than left. Ultrasound of bilateral lower extremities was negative for DVT. Chest CT angiogram was negative for PE. CBC on postop day # 3 showed H&H to be stable and white count was decreased to 7+ thousand. I offered to keep the patient here one more day but the patient wanted to go home on postoperative day #3 / Postop Complications: see Hospital course Complications: Please see hospital course Exam - Vitals Vital Signs: Vital Signs Temperature 97.5 F Temperature Source Oral Pulse Rate [Pulse Oximeter] 70 Pulse Rate 76 Respiratory Rate 16 Blood Pressure [Right Arm] 114/63 Blood Pressure 128/60 Pulse Ox 99 Oxygen Flow Rate 1 Oxygen Delivery Method Room Air Height 5 ft 10 in Weight 252 lb
--- NOTE | 2016-10-14 20:48 | DI ---
VENOUS DOPPLER ULTRASOUND OF THE BILATERAL LOWER EXTREMITIES, 10/12/2016 11:35 AM: Clinical History: Bilateral lower leg swelling Previous Exam: None. Technique: 2D real-time imaging is supplemented with color Doppler ultrasound. Compression and augmen tation maneuvers were performed. The long saphenous vein is normal. Reading: No evidence of deep venous thrombosis.
== END 2016-10-12 15:32 | disposition home or self-care (01) | DRG 766 ==
LOC: US 16:28 → OBOP 16:28 → OBIP 20:45
PROVIDERS: ADMIT Obstetrics & Gynecology; ATTEND Obstetrics & Gynecology
PROC: 10D00Z1 Extraction of Products of Conception, Low, Open Approach (ICD-10-PCS; principal; 2016-10-09 21:30)
PROC: 0UL70CZ Occlusion of Bilateral Fallopian Tubes with Extraluminal Device, Open Approach (ICD-10-PCS; 2016-10-09 21:30)
DX: O24.415 Gestational diabetes mellitus in pregnancy, controlled by oral hypoglycemic drugs (principal); O34.211 Maternal care for low transverse scar from previous cesarean delivery; N85.8 Other specified noninflammatory disorders of uterus; Z3A.37 37 weeks gestation of pregnancy; Z37.0 Single live birth; Z30.2 Encounter for sterilization
CPT/HCPCS: 36415; 71275; 76815; 76818; 80053; 81003; 82948; 85025; 85027; 86850; 86900; 86901; 93971; 94150; 94761; J1885; J2405; J2590; J2765; J3490; J7050; J7120

== ENCOUNTER → 2016-10-09 | Outpatient (CLI) | payer OTHER | LOC: MOB LAB 15:20 | PROVIDERS: ATTEND Obstetrics & Gynecology | DX: Z36 Encounter for antenatal screening of mother (principal); Z3A.37 37 weeks gestation of pregnancy | CPT/HCPCS: 87150 ==

== ENCOUNTER → 2017-01-07 | Outpatient (CLI) | payer OTHER ==
[2017-01-07 14:55] LABS: FREE T4 (FREE THYROXINE) 0.99 ng/dL (0.93-1.71)
== END ==
LOC: LAB 10:43
PROVIDERS: ATTEND Physician Assistant Medical
DX: O72.1 Other immediate postpartum hemorrhage (principal); R10.84 Generalized abdominal pain
CPT/HCPCS: 36415; 84439; 84443; 84481

== ENCOUNTER → 2017-01-08 | Outpatient (CLI) | payer OTHER ==
--- NOTE | 2017-01-09 10:34 | DI ---
US ABDOMEN LIMITED,01/08/2017 3:26 PM: Clinical History: Right upper quadrant pain Previous Exam: June 13, 2016 Findings: Multiple transabdominal grayscale and color Doppler sonographic images are obtained through the right upper quadrant, and demonstrate mild diffuse fatty infiltration of the liver. The gallbladder is within normal limits without stones. The gallbladder wall measures 2 mm. A- sonogr aphic Meyer's sign is obtained. The common bile duct measures 5 mm. The right kidney measures 10.4 cm in length without hydronephrosis nor nephrolithiasis. The aorta is unremarkable. Impression: Fatty infiltration of the liver otherwise unremarkable.
--- NOTE | 2017-01-09 10:39 | DI ---
US PELVIC-TRANSVAGINAL, US PELVIC COMPLETE (NON OB),01/08/2017 3:26 PM: Clinical History: Menorrhagia with irregular cycle. Previous Exam: OB ultrasound performed October 09, 2016 Findings: Multiple transabdominal and endovaginal grayscale and color Doppler sonographic images are obtained t hrough the pelvis demonstrating normal size and shape of the uterus which measures 10.4 x 4.4 x 7.0 c m with a 15 mm endometrial stripe. The right ovary measures 1.3 x 2.5 x 1.9 cm and the left ovary measures 2.9 x 2.5 x 2.4 cm with aman l Doppler flow. There is a 2 cm cyst noted within the left ovary. This is a normal finding for a sorin enopausal female. Impression: Normal pelvic ultrasound for age.
== END ==
LOC: US 15:22
PROVIDERS: ATTEND Obstetrics & Gynecology
DX: N92.1 Excessive and frequent menstruation with irregular cycle (principal); R10.31 Right lower quadrant pain; R10.11 Right upper quadrant pain; K76.0 Fatty (change of) liver, not elsewhere classified
CPT/HCPCS: 76705; 76830; 76856